=== PATIENT | male | born 1995 | race Two or more races ===

== ENCOUNTER 2020-09-23 21:51 | Emergency (ER) | payer SELFPAY ==
[~2020-09-23] VITALS: Ht 167.6 cm; Wt 64.1 kg
[2020-09-23 22:04] VITALS: BP 109/68
--- NOTE | 2020-09-23 23:58 | NUR ---
pt presents to the ed with back pain. pt states that he had this pain in the past a few months ago, but it got better. pt states that this time the pain is worse and it started a few days ago. pt in gown resting on gurney and placed on continuous monitoring.
[2020-09-24] MEDS ORDERED: KETOROLAC 60 MG/2 ML ONE (00:06)
[2020-09-24] MEDS ORDERED: METHOCARBAMOL 750 MG TABLET ONE (00:06)
--- NOTE | 2020-09-24 00:15 | NUR ---
pt medicated, resting on gurney, denies needs at this time.
[2020-09-24] MEDS ORDERED: KETOROLAC 60 MG/2 ML IM ONE (00:30)
[2020-09-24] MEDS ORDERED: METHOCARBAMOL 750 MG TABLET PO ONE (00:30)
--- NOTE | 2020-09-24 00:48 | NUR ---
Patient/Caregiver given discharge instructions and they have confirmed that they understand the instructions. Patient ambulatory with steady gait.
== END 2020-09-24 00:57 | disposition home or self-care (01) ==
LOC: ED 23:30
DX: S39.012A Strain of muscle, fascia and tendon of lower back, initial encounter (principal); M46.1 Sacroiliitis, not elsewhere classified; X58.XXXA Exposure to other specified factors, initial encounter; Y93.89 Activity, other specified; Y92.89 Other specified places as the place of occurrence of the external cause; Y99.8 Other external cause status
CPT/HCPCS: 96372; 99283; J1885